=== PATIENT | female | born 1990 | race African-American/Black ===

== ENCOUNTER 2023-01-11 00:07 | Emergency (ER) | payer MEDICAID ==
[~2023-01-11] VITALS: Ht 157.5 cm; Wt 91.0 kg
[2023-01-11 00:30] VITALS: BP 124/82
[2023-01-11] MEDS ORDERED: IBUPROFEN 400MG TABLET PO ONE (00:45)
[2023-01-11] MEDS ORDERED: NAPR-681 MT (02:04)
== END 2023-01-11 02:58 | disposition home or self-care (01) ==
LOC: ER 00:07
DX: S92.901A Unspecified fracture of right foot, initial encounter for closed fracture (principal); W18.39XA Other fall on same level, initial encounter; Y93.89 Activity, other specified; Y92.89 Other specified places as the place of occurrence of the external cause; Y99.8 Other external cause status
CPT/HCPCS: 29515; 73630; 99283; Z7610